=== PATIENT | female | born 2000 | race Caucasian/White ===

== ENCOUNTER 2020-06-24 14:37 | Outpatient (RCR) | payer OTHER, SELFPAY ==
[2020-06-22 11:43] LABS: Beta HCG Quantitative 416.93 mIU/ML
[2020-06-25 07:20] LABS: Progesterone 19.3 ng/mL (***)
== END 2020-09-20 23:59 | disposition home or self-care (01) ==
LOC: ANHLAB 14:37
PROVIDERS: Visit Provider Obstetrics & Gynecology
DX: N91.2 Amenorrhea, unspecified (principal)
CPT/HCPCS: 36415; 84144; 84702

== ENCOUNTER 2020-11-07 19:44 | Observation (INO) | payer OTHER, SELFPAY ==
--- NOTE | ~2020-11-07 | US_ITS ---
EXAMINATION: US umbilical doppler, US OB limited EXAM DATE: 11/08/2020 07:26 INDICATION: decels/. 2nd trimester. TECHNIQUE: Pelvic obstetrical transabdominal sonogram was performed by a technologist. There are mu ltiple grayscale and Doppler images available for interpretation. FINDINGS: There is a single fetus identified in breech longitudinal presentation with a heart rate of 144 beats per minute. The placenta is located in the posterior position. There is no sonographic ev idence of retroplacental hemorrhage identified. The amniotic fluid index is 13.9 centimeters, which i s normal. Placental margin to internal cervical os distance is 3.8 cm cm. There is no cervical funne ling. Cervical canal length 5.7 cm. Another image annotated cervical length with pressure has a measu rement of 5.5 cm. UMBILICAL ARTERY DOPPLER Systolic/diastolic ratios obtained as follows: Near baby: 2.5 Mid aspect: 3.3 Near Placenta: 2.4 (The 5th -- 95th percentile range is 2.6-5.6). IMPRESSION: 1. Single fetus in breech longitudinal presentation with heart rate 144 beats per minute. 2. Normal JENA 14 cm. 3. Cervical canal length 5.5-5.7 cm. 4. No elevated Umbilical artery doppler ratios. Reviewed, dictated and finalized at location B. IMPRESSION: 1. Single fetus in breech longitudinal presentation with heart rate 144 beats per minute. 2. Normal JENA 14 cm. 3. Cervical canal length 5.5-5.7 cm. 4. No elevated Umbilical artery doppler ratios.
[2020-11-07 19:58] VITALS: BP 114/68; PULSE 75
[2020-11-07 20:00] VITALS: BP 115/64; PULSE 80
[2020-11-07 20:05] VITALS: BMI 25.2
--- NOTE | 2020-11-07 20:05 | OBADM ---
This patient, Jeanne Padron, admitted to the OB room OB Post 113 for observation. Patient/family oriented to hospital policies and general routines including ID bracelet, bed and alarms, visiting hours, pain management, procedures, bathroom and other care routines, personal items, smoking policy, room service/diet, and visiting hours. Patient/Family are encouraged to report perceived risks to care and to ask questions if they do not understand what they are told or what they should do.
[2020-11-07 21:00] VITALS: BP 121/73; PULSE 85
[2020-11-07] MEDS: TERBUTALINE SULFATE 1 MG/ML VIAL 0.25 MG SUB-Q (21:01)
--- NOTE | 2020-11-07 21:16 | PM.IMHP ---
H&P: HPI History of Present Illness Date/Time: 11/07/20 21:16 Chief Complaint: G 4 P1 pt admitted for observation came in with contractions at 24 weeks gestation. RN called and noted deep variables on NST, At bs for evaluation, pt c/o irregular but uncomfortable contractions, no discharge or leaking of fluid, no intercourse with in the last 24 hours Meds Vital Signs Vital Signs - 24 hr 11/07/20 19:58 11/07/20 20:00 11/07/20 21:00 Pulse Rate 75 80 85 Blood Pressure 114/68 115/64 121/73 Exam Narrative: Exam Narrative: Speculum exam, cervix appears closed, FFN collected, SVE 1 thick firm Const: General: cooperative
[2020-11-07 21:32] VITALS: TEMP 37.3
[2020-11-07 21:44] LABS: Fetal Fibronectin Negative
[2020-11-07] MEDS: LACTATED RINGERS 1,000 ML 999 ML IV CONT (21:52)
--- NOTE | 2020-11-07 22:00 | PC.NURSE ---
SEE OBIX DOCUMENTATION.
[2020-11-07 22:10] LABS: Add Urine Microscopic? YES; Appearance Urine Cloudy (Clear); Bacteria Urine Trace /hpf; Bilirubin Urine Negative (Negative); Color Urine Yellow (Yellow); Glucose Urine UA Negative (Negative); Ketones Urine Negative (Negative); Leukocyte Esterase Ur Negative LEU/UL (Negative); Mucus Urine Rare /lpf; Nitrate Urine Negative (Negative); Protein Urine Negative (Negative); RBC Urine 0-2 /hpf (0-2); Squamous Epithelial Cell Urine Occasional /hpf (Few); Urobilinogen Urine Negative mg/dL (<2.0)
[2020-11-07 22:15] LABS: Blood Urine Negative (Negative)
[2020-11-07 23:58] VITALS: BP 111/57; PULSE 72
[2020-11-08] VITALS (12 sets, daily range): BP systolic 92–119; BP diastolic 44–73; PULSE 72–89; TEMP 36.6–37
[2020-11-08] MEDS: TERBUTALINE SULFATE 1 MG/ML VIAL 0.25 MG SUB-Q ×2 (00:32→04:21)
[2020-11-08] MEDS: LACTATED RINGERS 1,000 ML 125 ML IV CONT ×2 (01:37→11:18)
--- NOTE | 2020-11-08 04:30 | PC.NURSE ---
Update to Kindra Bhandari CNM. Reported pt contractions and variable decels. Terb given x3. Order for ProcardiaXL 30 mg.
--- NOTE | 2020-11-08 06:43 | PC.NURSE ---
SEE OBIX DOCUMENTATION.
--- NOTE | 2020-11-08 07:55 | PC.NURSE ---
Dr. Be on unit and reviewed entire FHR tracing from the night through now. MD not convinced they are variable decels. MD viewed U/S results per computer. Broached possibility of transferring pt to higher level of care with .
--- NOTE | 2020-11-08 08:03 | PC.NURSE ---
Dr. Be in to see pt and discuss U/S results. Discussing whether baby is actually having variable decels or if baby's almost non-stop activity is more accelerations with brief drops down to baseline. Pt denies drug use, stimulants, methamphetamine. Dr. Be plans to talk with M regarding FHR tracing. Discussed pt's history of lupus.
--- NOTE | 2020-11-08 08:30 | PM.IMHP ---
H&P: HPI History of Present Illness Date/Time: 11/08/20 08:30 this patient is a 20-year-old 3 para 1011 at 24 weeks gestation who presented for contractions. Her contractions decreased in frequency. She denies any vaginal bleeding. She denies any nausea, vomiting, fever, chills. She denies any chest pain or shortness of breath. She denies any headache, blurry vision, epigastric pain. Chief Complaint: contractions Review of Systems Constitutional: Constitutional: Reports no additional constitutional complaints, Denies fatigue, Denies headache(s), Denies lethargy and Denies weakness Eyes: Eyes: Reports no additional eye complaints, Denies blurry vision and Denies photophobia ENT: Reports as per HPI, Denies headache(s) and Denies neck pain Cardiovascular: Cardiovascular: Denies chest pain, Denies diaphoresis, Denies leg edema, Denies palpitations and Denies dyspnea Respiratory: Respiratory: Denies hemoptysis, Denies dyspnea and Denies wheezing Gastrointestinal: Gastrointestinal: Denies abdominal pain, Denies melena, Denies bloating, Denies hematochezia, Denies nausea and Denies vomiting Genitourinary: Genitourinary: Reports no additional female genitourinary complaints Musculoskeletal: Musculoskeletal: Denies joint swelling, Denies neck pain, Denies numbness and Denies stiffness Neurologic: Denies Abnormal speech present, Denies confusion, Denies headache(s), Denies numbness and Denies weakness Psychiatric: Psychiatric: Denies anxiety, Denies confusion, Denies depression, Denies homicidal ideation and Denies suicidal ideation Endocrine: Endocrine: Denies fatigue and Denies palpitations Allergic/Immunologic: Allergic/Immunologic: Denies wheezing Meds Home Medications and Allergies Allergies Allergy/AdvReac Type Severity Reaction Status Date / Time No Known Allergies Allergy Verified 11/07/20 21:52 Vital Signs Vital Signs - 24 hr 11/07/20 19:58 11/07/20 20:00 11/07/20 21:00 Temperature Pulse Rate 75 80 85 Blood Pressure 114/68 115/64 121/73 11/07/20 21:32 11/07/20 23:58 11/08/20 04:01 Temperature 99.2 F Pulse Rate 72 72 Blood Pressure 111/57 L 111/61 11/08/20 05:06 11/08/20 06:43 11/08/20 06:44 Temperature 98 F Pulse Rate 81 83 Blood Pressure 92/48 L 108/63 11/08/20 07:00 11/08/20 08:00 Temperature Pulse Rate 77 76 Blood Pressure 104/59 L 119/73 Exam Const: General: healthy appearing, comfortable and no acute distress; No confusion Orientation/consciousness: No confusion Eyes: Direct Ophthalmoscopy: No photophobia Resp: Auscultation: clear to auscultation bilaterally, no rales, no rhonchi and no wheezes Cardio: Rate: regular rate Heart sounds: no click, no murmurs and no rubs GI: Inspection: non-distended GI Palp: No abdominal tenderness Auscultation: normal bowel sounds Neuro: General: No confusion Speech: No Abnormal speech present Extrem: General: normal to inspection, no pedal edema and no calf tenderness H&P: Results Labs Labs: Urine 11/07/20 Range/Units 21:51 Urine Color Yellow (Yellow) Urine Appearance Cloudy H (Clear) Urine pH 7.0 (5.0-9.0) Ur Specific [place] 1.020 (1.001-1.035) Urine Protein Negative (Negative) mg/dL Urine Glucose (UA) Negative (Negative) mg/dL Assessment and Plan Assessment and plan (1) heart rate decelerations affecting management of mother: Code(s): O36.8390 - Maternal care for abnormalities of the heart rate or rhythm, unspecified trimester, not applicable or unspecified Status: Acute (2) contractions: Code(s): O47.00 - False labor before 37 completed weeks of gestation, unspecified trimester Status: Acute Assessment and Plan: this patient is a 20-year-old multiparous female at 24 weeks gestation who presented for painful contractions. Her contractions resolved after period of observation. What was concern after vernon
[2020-11-08] MEDS: NIFEdipine 30 MG TAB.ER.24 PO (08:48)
[2020-11-08 09:11] LABS: Amphetamine Screen Urine Negative (Negative); Barbiturate Screen Urine Negative (Negative); Benzodiazepines Screen Urine Negative (Negative); Cannabinoid Screen Urine Negative (Negative); Cocaine Screen Urine Negative (Negative); Methadone Screen Urine Negative (Negative); Opiate Screen Urine Negative (Negative); Phencyclidine Screen Urine Negative (Negative)
== END 2020-11-08 13:58 | disposition home or self-care (01) ==
LOC: ANHOBPP 11-08 13:40 → ANHLDR 11-08 13:58
PROVIDERS: Advanced Practice Midwife; Admitting Provider Obstetrics & Gynecology; Visit Provider Obstetrics & Gynecology
DX: O36.8390 Maternal care for abnormalities of the fetal heart rate or rhythm, unspecified trimester, not applicable or unspecified (principal); O47.00 False labor before 37 completed weeks of gestation, unspecified trimester; Z3A.24 24 weeks gestation of pregnancy
CPT/HCPCS: 76815; 76820; 80307; 81001; 82731; 87086; 96360; 96361; 96372; A9270; G0378; G0379; J3105; J7120

== ENCOUNTER 2020-11-26 06:04 | Outpatient (CLI) | payer OTHER, SELFPAY ==
--- NOTE | 2020-11-26 06:04 | OBADM ---
This patient, Jeanne Padron, admitted to the OB room OB Post 116 for evaluation of possible SROM. Patient/family oriented to hospital policies and general routines including ID bracelet, bed and alarms, visiting hours, pain management, procedures, bathroom and other care routines, personal items, smoking policy, room service/diet, and visiting hours. Patient/Family are encouraged to report perceived risks to care and to ask questions if they do not understand what they are told or what they should do.
[2020-11-26 06:24] VITALS: BP 123/74; PULSE 88; RESP 20; TEMP 36.6
[2020-11-26 06:53] VITALS: BP 123/74; PULSE 99
== END 2020-11-26 06:59 | disposition home or self-care (01) ==
LOC: ANHOBOP 06:08 → ANHOBPP 06:09
PROVIDERS: Visit Provider Obstetrics & Gynecology
DX: O42.90 Premature rupture of membranes, unspecified as to length of time between rupture and onset of labor, unspecified weeks of gestation (principal); Z3A.00 Weeks of gestation of pregnancy not specified
CPT/HCPCS: 59025; 84112; 99199

== ENCOUNTER 2020-12-03 17:38 | Observation (INO) | payer OTHER, SELFPAY ==
--- NOTE | ~2020-12-03 | US_ITS ---
EXAMINATION: US OB limited w BPP DATE: 12/04/2020 07:45 INDICATION: decelerations during third trimester TECHNIQUE: Real-time pelvic ultrasound was performed. The interpreting radiologist was not present fo r the study. COMPARISON: 11/08/2020 FINDINGS: There is a single living fetus in vertex presentation. The placenta is posterior. heart rate is 145 beats per minute (bpm). The amniotic fluid index is 9.7 cm which is normal (normal range: 9.4 cm to 22.8 cm). Biophysical profile performed by the technologist: breathing (30 sec sustained breathing in 30 minutes): 0 out of 2 movement (3 gross body movements in 30 minutes): 2 out of 2 tone (one episode of gzxsjei-trqhbjzvm-afhndxt limb movement): 2 out of 2 Amniotic fluid pocket (2 cm): 2 out of 2 Total score: 6 out of 8 IMPRESSION: 1. Single living fetus in vertex presentation. 2. Biophysical profile 6 out of 8. 3. Normal amniotic fluid index. Reviewed, dictated and finalized at location D.
[2020-12-03 18:00] VITALS: BMI 25.6
--- NOTE | 2020-12-03 18:00 | OBADM ---
This patient, Jeanne Padron, admitted to the OB room OB Post 116 for observation. Patient/family oriented to hospital policies and general routines including ID bracelet, bed and alarms, visiting hours, pain management, procedures, bathroom and other care routines, personal items, smoking policy, room service/diet, and visiting hours. Patient/Family are encouraged to report perceived risks to care and to ask questions if they do not understand what they are told or what they should do.
[2020-12-04 07:56] VITALS: BP 113/67; PULSE 87; RESP 16; TEMP 36.7
[2020-12-04 09:27] LABS: Glucose 1 Hour PP 50gm Dose 126 mg/dL
--- NOTE | 2020-12-23 10:10 | PM.OBTRLD ---
OB - Triage/Final Diagnosis Visit Information Comments/Additional reasons for admission: I have assessed the risk for this patient, Jeanne Padron, and determined that she would benefit from observation care. Evaluation Laboratory results: Laboratory Tests 12/04/20 08:54 Glucose 1 Hr 50 gm 126 Final Diagnosis (1) Decreased movement: Code(s): O36.8190 - Decreased movements, unspecified trimester, not applicable or unspecified Status: Acute
== END 2020-12-04 09:30 | disposition home or self-care (01) ==
PROVIDERS: Advanced Practice Midwife; Admitting Provider Obstetrics & Gynecology; Visit Provider Obstetrics & Gynecology
DX: O36.8120 Decreased fetal movements, second trimester, not applicable or unspecified (principal); Z3A.27 27 weeks gestation of pregnancy
CPT/HCPCS: 36415; 76815; 76819; 82947; G0378; G0379

== ENCOUNTER 2020-12-03 17:38 | Outpatient (RCR) | payer OTHER, SELFPAY | END 2020-12-18 09:08 | disposition home or self-care (01) | LOC: ANHOBOP 17:38 | PROVIDERS: Visit Provider Obstetrics & Gynecology | DX: O26.893 Other specified pregnancy related conditions, third trimester (principal); Z3A.00 Weeks of gestation of pregnancy not specified | CPT/HCPCS: 99199 ==

== ENCOUNTER 2021-02-01 15:13 | Outpatient (RCR) | payer OTHER, SELFPAY ==
[2021-02-01 16:06] VITALS: BP 117/71; PULSE 90
== END 2021-03-11 10:35 | disposition home or self-care (01) ==
LOC: ANHOBOP 15:13
PROVIDERS: Visit Provider Obstetrics & Gynecology
DX: O99.119 Other diseases of the blood and blood-forming organs and certain disorders involving the immune mechanism complicating pregnancy, unspecified trimester (principal); M32.9 Systemic lupus erythematosus, unspecified; Z3A.36 36 weeks gestation of pregnancy
CPT/HCPCS: 59025

== ENCOUNTER 2021-02-20 05:06 | Inpatient (IN) | payer OTHER, SELFPAY ==
[2021-02-20] VITALS (90 sets, daily range): BP systolic 81–135; BP diastolic 40–90; PULSE 8–112; RESP 18; TEMP 36.5–37.3; O2SAT 98–100; BMI 27.3
--- NOTE | 2021-02-20 05:31 | LDADM ---
This patient, Jeanne Padron, was admitted to Labor/Delivery/Recovery 102 on 02/20/21 at 05:06. Plans for labor, pain management and were discussed with patient. Patient/family oriented to hospital policies and general routines including ID bracelet, bed and alarms, visiting hours, pain management, procedures, bathroom and other care routines, personal items, smoking policy, room service/diet and guest tray routines, security routines, and visiting hours. Patient/Family are encouraged to report perceived risks to care and to ask questions if they do not understand what they are told or what they should do. See OBIX for further documentation.
[2021-02-20] MEDS: LACTATED RINGERS 1,000 ML 125 ML IV CONT ×2 (05:37→09:40)
[2021-02-20] MEDS: OXYTOCIN 30 UNITS/NS 500 ML 30 UNITS/500 ML BAG IV CONT (05:37)
[2021-02-20 05:42] LABS: Basophils Percent Auto 0.5 % (0.2-1.2); Eosinophils Absolute Auto 0.1 K/mm3 (0-0.3); Eosinophils Percent Auto 1.1 % (0-4.4); Hematocrit 32.7 % (37.0-47.0); Hemoglobin 11.6 g/dL (12.0-15.0); Immature Granulocyte Absolute 0.05 K/mm3 (0.00-0.031); Immature Granulocyte Percent A 0.7 % (0-0.5); Lymphocytes Absolute Auto 2.26 K/mm3 (0.9-3.2); Lymphocytes Percent Auto 30.5 % (18.3-44.2); Mean Corpuscular HGB Conc 35.5 g/dl (32-36); Mean Corpuscular Hemoglobin 31.2 pg (26-34); Mean Corpuscular Volume 87.9 fl (80-100); Mean Platelet Volume 9.8 fl (7.4-10.4); Monocytes Absolute Auto 0.6 K/mm3 (0.1-0.6); Monocytes Percent Auto 7.7 % (2.6-8.5); Neutrophils Absolute Auto 4.4 K/mm3 (1.3-6.7); Neutrophils Percent Auto 59.5 % (45.5-73.1); Platelet Count Result 165 k/mm3 (150-375); Red Blood Count 3.72 M/mm3 (4.2-5.4); Red Cell Distribution Width 13.3 % (11.5-14.5); White Blood Count 7.4 K/mm3 (4.5-10.0)
--- NOTE | 2021-02-20 06:17 | P.PNAN_ITS ---
Anes - Eval Pre Procedure Procedure: labor epidural Date/Time: 02/20/21 06:17 Surgeon: claudia Preop Diagnosis: pain during labor Pre Op Diagnosis: Induction of Labor Patient Data Age: 20 Gender: F Height: 1.52 m Weight: 63.6 kg Last Vital Signs Pulse 64 02/20/21 06:15 BP 121/69 02/20/21 06:15 Allergies Allergy/AdvReac Type Severity Reaction Status Date / Time No Known Allergies Allergy Verified 11/07/20 21:52 Home Medications Medication Instructions Recorded Confirmed Type PNV cmb#95-ferrous fumarate-FA 1 tablet PO DAILY 11/08/20 02/17/21 History [] sertraline 100 mg PO HS 11/08/20 02/17/21 History Laboratory Tests 02/20/21 02/20/21 05:32 05:32 WBC 7.4 K/mm3 K/mm3 (4.5-10.0) RBC 3.72 M/mm3 L M/mm3 (4.2-5.4) Hgb 11.6 g/dL L g/dL (12.0-15.0) Hct 32.7 % L % (37.0-47.0) MCV 87.9 fl fl (80-100) MCH 31.2 pg pg (26-34) MCHC 35.5 g/dl g/dl (32-36) RDW 13.3 % % (11.5-14.5) Plt Count 165 k/mm3 k/mm3 (150-375) MPV 9.8 fl fl (7.4-10.4) Immature Gran % (Auto) 0.7 % H % (0-0.5) Neut % (Auto) 59.5 % % (45.5-73.1) Lymph % (Auto) 30.5 % % (18.3-44.2) [place] % (Auto) 7.7 % % (2.6-8.5) Eos % (Auto) 1.1 % % (0-4.4) Baso % (Auto) 0.5 % % (0.2-1.2) Lymph # (Auto) 2.26 K/mm3 K/mm3 (0.9-3.2) [place] # (Auto) 0.6 K/mm3 K/mm3 (0.1-0.6) Eos # (Auto) 0.1 K/mm3 K/mm3 (0-0.3) Baso # (Auto) 0.0 K/mm3 K/mm3 (0.0-0.1) Abs Immat Gran (auto) 0.05 K/mm3 H K/mm3 (0.00-0.031) Absolute Neuts (auto) 4.4 K/mm3 K/mm3 (1.3-6.7) Absolute Nucleated RBC 0.0 K/mm3 K/mm3 (0.0-0.012) Nucleated RBC % 0.0 % % (0.0-0.2) RPR Pending Patient hx anesthesia problems: none Family hx anesthesia problems: none Results Review: All pre-operative results and documents have been reviewed as part of the pre-operative evaluation. FOR[facility]LY [facility] Past Medical History Medical History (Updated 02/20/21 @ 06:18 by Neyda Hernadez CRNA) Intrauterine Family History Family History (Updated 02/17/21 @ 16:34 by Melyssa Ellis RN) Other No pertinent family history in first degree relatives Social History Social History Smoking packs per day: 0.25 Smoking cigarettes per day: 5.0 Years smoked: 4 Smoking pack-years: 1.00 Smoking status: Former smoker Tobacco type: cigarettes Second hand tobacco smoke exposure: No Substance use: never Spiritual care concerns: No Exam Day of Procedure 02/20/21 06:17
--- NOTE | 2021-02-20 07:38 | WPDOBADMIT ---
Obstetrics - Admit Note Admission Note: record reviewed. No pertinent additions to the history and/or any subsequent changes in the physical findings that are not consistent with the expected course of the were found. MIL, Lupus, SVE /-1 AROM large amount of clear odorless fluid Additions to the history and/or subsequent changes in the physical findings follow. None.
[2021-02-20] MEDS: fentaNYL CITRATE INJ (*CRX) 100 MCG/2 ML VIAL 50 MCG IV PUSH (08:25)
[2021-02-20 08:30] LABS: Rapid Plasma Reagin Non-Reactive (NonReactive)
--- NOTE | 2021-02-20 11:47 | PM.OBPRVD ---
OB - Delivery Note Procedure Delivery date: 02/20/21 Procedure: vaginal delivery events: No Care Intrapartal events: None Induction method: AROM and per pitocin protocol Route of delivery: Laceration Description: None Specimen: No Quantitative Blood Loss (ml): 200 Anesthesia type: Epidural Disposition: floor Baby Date of : 02/20/21 Time of : 11:33 Weeks of gestation at delivery: 39 Infant gender: Male Weight (pounds): 7 Weight (ounces): 5 presentation: vertex position: Left Occiput Anterior Placenta delivery description: Spontaneous cord vessel description: 3 Vessels, Clamped/Cut and Delayed Cord Clamping score one minute: 8 score five minutes: 9 Narrative: mother and baby skin to skin in stable condition
[2021-02-20] MEDS: OXYTOCIN 30 UNITS/NS 500 ML 30 UNITS/500 ML BAG 125 UNITS IV CONT (12:24)
[2021-02-20] MEDS: IBUPROFEN 600 MG TABLET PO (14:06)
[2021-02-20] MEDS: WITCH HAZEL 40 PADS 1 PAD TOPICAL (14:07)
--- NOTE | 2021-02-20 14:55 | PC.NURSE ---
Mother called out for assist with feeding. Mother reports infant was unable to latch for first feeding, Mother self expressed colostrum into infants mouth for feeding. Mother reports difficulties with first child and wishes to exclusively breastfeed this . Infant is able to freely thrust tongue past gum ridge and flange both lips, keeps tongue up and is sucking on his tongue. Skin is intact on both nipples, no redness and bruising noted. Nipples are flat Reviewed infant feeding cues, frequencies, duration of feedings, feeding elimination flow sheet, and signs of adequate intake. Demonstrated stimulation techniques to wake for feeding. Assisted with infant to breast. Reviewed positioning/alignment in cross cradle, holding breast in ?U? hold and guided asymmetrical latch on. Reviewed rational for each. Infant was unable to latch correctly due to tongue sucking. Attempt for 10 minutes with no effective latch. Discussed nipple shield use and how shield may assist with latch. Mother is willing to attempt using shield. Initiated nipple shield due to flat nipples, unable to latch and tongue sucking. Reviewed nipple shield precautions and possible complications. Instructions given on application and cleaning of shield. Patient able to return demonstration on proper application of shield. Discussed the need to initiate pumping if continues to nurse with the shield. Patient verbalizes understanding. With shield in place, infant able to latch correctly within a few attempts. Infant nursed eagerly with steady draws and occasional swallowing noted. Reviewed signs of a correct latch, effective nursing and suck swallow ratio. was able to maintain latch without discomfort to mother. Suggested mother stimulate while feeding to increase stimulate, increase intake and to assist with maintaining deep latch. Demonstrated how to adjust latch more deeply while feeding if needed. Instructed mother to call out for RN assistance if she is unable to latch for feeding or she has discomfort with nursing. Instructed feeding should be initiated three hours from start of last feeding or if feeding cues are noted before. Mother voiced understanding of information shared.
[2021-02-20] MEDS: SERTRALINE HCL 50 MG TABLET 100 MG PO (21:04)
[2021-02-21 00:06] VITALS: BP 106/61; PULSE 72; RESP 18; TEMP 36.3; O2SAT 99
[2021-02-21 04:29] VITALS: BP 104/61; PULSE 78; RESP 18; TEMP 36.8; O2SAT 100
[2021-02-21 05:24] LABS: Hematocrit 27.4 % (37.0-47.0); Hemoglobin 9.4 g/dL (12.0-15.0)
[2021-02-21 07:20] VITALS: BP 111/73; PULSE 75; RESP 18; TEMP 37; O2SAT 98
[2021-02-21] MEDS: IBUPROFEN 600 MG TABLET PO ×3 (07:20→21:10)
[2021-02-21] MEDS: POLYSACCHARIDE IRON COMPLEX 150 MG CAPSULE PO ×2 (07:21→17:31)
[2021-02-21] MEDS: DOCUSATE SODIUM 100 MG CAPSULE PO ×2 (07:21→17:31)
[2021-02-21] MEDS: MULTIVIT/MIN/PREN/FOL AC/IRON TABLET 1 TAB PO (07:21)
--- NOTE | 2021-02-21 07:52 | PM.OBPNVD ---
OB - PN: Subj Subjective Date/time seen: 02/21/21 07:52 Patient comments: no complaints baby status: doing well OB - PN: Obj Data Labs CBC & Chem 7: 02/21/21 04:17 Labs: Laboratory Results - last 24 hr 02/20/21 02/21/21 05:32 04:17 Hgb 9.4 L Hct 27.4 L RPR Non-reactive OB - PN A/P Plan day: 1 Plan: routine care Time Spent With Patient Time: Total time spent is greater than 50% in coordination of care (as documented) at patient's floor/unit and/or counseling patient: Time with patient: less than 15 minutes Review of Systems Review of Systems: All systems reviewed & are unremarkable except as noted in HPI and below Exam Narrative: Fundus firm and vaginal flow controlled. No lower ext redness, warmth, or edema. Negative homans. Const: General: comfortable Chest: Breast/axilla inspection: normal inspection of the breasts Resp: Effort & Inspection: normal respiratory effort Cardio: Rate: regular rate GI: GI Palp: Yes Soft to palpation Psych: Appearance: grossly normal Affect: normal affect Attitude: cooperative Thought content: Yes Normal thought content present Judgement: Good judgement present (Psych)
--- NOTE | 2021-02-21 11:00 | PC.NURSE ---
Mother called out for assist with feeding. Demonstrated stimulation techniques to wake for feeding. Assisted with to breast. Reviewed positioning/alignment in cross cradle, holding breast in ?U? hold and guided asymmetrical latch on. Reviewed rational for each. remains sleepy and advised to skin to skin and call out within 30 minutes if unable to latch.
--- NOTE | 2021-02-21 12:05 | PC.NURSE ---
Mother called out for assist with feeding, reporting remains sleepy after circumcision. Demonstrated stimulation techniques to wake for feeding. Several minutes to wake infant with feeding cues noted. Assisted with to breast. Reviewed positioning/alignment in cross cradle, holding breast in ?U? hold and guided asymmetrical latch on. Reviewed rational for each. able to latch correctly within a few attempts. Infant nursed eagerly with steady draws and occasional/frequent swallowing noted, some pausing noted. Reviewed signs of a correct latch, effective nursing and suck swallow ratio. Suggested mother stimulate while feeding to increase stimulate, increase intake and to assist with maintaining deep latch. Infant was able to maintain latch without discomfort to mother. would slip to shallow latch causing tenderness. Demonstrated how to adjust latch more deeply while feeding if needed. Mother reports she can feel the difference in latch with no/less tenderness. Nipple care reviewed of lanolin after feedings, warm compresses as needed. Instructed mother to call out for RN assistance if she is unable to latch for feeding or she has discomfort with nursing. Instructed feeding should be initiated three hours from start of last feeding or if feeding cues are noted before. Mother voiced understanding of information shared.
--- NOTE | 2021-02-21 14:58 | WPDANLDPN2 ---
Anes-Prog Note L&D Date/Time: 02/21/21 14:58 Comfortable throughout: labor and delivery Neuraxial method: epidural Epidural/Spinal procedure site: clean & non-tender Neuro status: Neuro function grossly intact. Cardiovascular status: normal Respiratory status: normal Airway patency: baseline Mental status: baseline Post-Op hydration status: normal Vital Signs: Last Vital Signs Temp 37.0 C 02/21/21 07:20 Pulse 75 02/21/21 07:20 Resp 18 02/21/21 07:20 BP 111/73 02/21/21 07:20 Pulse Ox 98 02/21/21 07:20 Pain score (VAS): 05/06 I/O: Intake & Output 02/20/21 02/21/21 02/21/21 23:59 07:59 15:59 Intake Total 240 Balance 240 Post-procedural complaints: none Patient feedback: Patient satisfied with anesthetic care.
[2021-02-21 20:00] VITALS: BP 110/60; PULSE 68; RESP 18; TEMP 36.8
[2021-02-21] MEDS: LANOLIN (LANSINOH) 7.5 GM CREAM 1 APPLIC TOPICAL (21:11)
[2021-02-21] MEDS: SERTRALINE HCL 50 MG TABLET 100 MG PO (21:11)
--- NOTE | 2021-02-22 07:39 | PM.OBPNVD ---
OB - PN: Subj Subjective Date/time seen: 02/22/21 07:39 Patient comments: no complaints baby status: doing well OB - PN: Obj Data Labs CBC & Chem 7: 02/21/21 04:17 OB - PN A/P Plan day: 2 Plan: routine care and discharge home Time Spent With Patient Time: Total time spent is greater than 50% in coordination of care (as documented) at patient's floor/unit and/or counseling patient: Review of Systems Review of Systems: All systems reviewed & are unremarkable except as noted in HPI and below Exam Const: General: cooperative Nutritional Appearance: average body habitus
--- NOTE | 2021-02-22 07:41 | PM.OBDSVD ---
DS: Admitting Diagnosis Discharge Date 02/22/21 Admitting Diagnosis IOL OB - DS: Summary OB Procedures : None OB Procedures Intrapartum: Spontaneous Vag Delivery OB Procedures: : None Time Spent with Patient Time attestation: Total time spent providing and/or coordinating discharge services: Discharge Plan Discharge Attending physician on discharge: Govind Be Discharging Clinician: Alie Peterson Patient Disposition: Home, Self-Care Activity: pelvic rest Diet: regular Patient Instructions: Antibiotic Form Stand Alone Forms: General Discharge Information Follow-up/Referrals: Alie Peterson CNM [Certified Nurse Assistant Reading Teacher] - 4 Weeks Discharge Medications: Continued sertraline 100 mg tablet 100 mg PO HS RF: 0 PNV cmb#95-ferrous fumarate-FA [] 28 mg iron- 800 mcg Tablet 1 tablet PO DAILY RF: 0 Date of admission: 02/20/21 05:06 Primary Care Provider: PHYSICIAN,HYDROELECTRIC STATION OPERATOR Admitting Provider: Govind Be Attending physician on admission: Govind Be Condition: Stable
[2021-02-22 08:00] VITALS: BP 120/78; PULSE 80; RESP 16; TEMP 37.2; O2SAT 99
[2021-02-22 09:16] VITALS: PULSE 80; RESP 16; O2SAT 99
--- NOTE | 2021-02-22 09:21 | PC.NURSE ---
Patient was given the opportunity to view the discharge video Mother & Baby Care, The First Two Weeks and to ask questions. Patient declined viewing the video and has been given the mother/baby guide for home reference.
[2021-02-22] MEDS: MULTIVIT/MIN/PREN/FOL AC/IRON TABLET 1 TAB PO (09:41)
[2021-02-22] MEDS: DOCUSATE SODIUM 100 MG CAPSULE PO (09:41)
[2021-02-22] MEDS: POLYSACCHARIDE IRON COMPLEX 150 MG CAPSULE PO (09:41)
[2021-02-22] MEDS: IBUPROFEN 600 MG TABLET PO (09:41)
--- NOTE | 2021-02-22 09:45 | PC.NURSE ---
Observed mother is able to independently latch with appropriate positioning/alignment. eagerly latches on first attempt with long rhythmical draws and frequent swallowing noted. She denies any nipple discomfort, is feeding as required and waking infant to feed if needed. has had at least 8 effective feedings in the past 24 hours, and is currently meeting outcomes for weight, output, jaundice and feeding frequencies. Mother reported was sleepy last night and had some difficulties with latching, Reviewed softening before feeding with pumping or self expressing and to assist with drawing out nipple. Mother states she feels confident to continue effective at home. Reviewed transition to breast milk, signs of adequate intake, and engorgement/relief. Instructed to call ICP if intake/output less than required. Reviewed regular medications mother is taking. Information provided per Bree. Reviewed community resources on the [facility] website and in the Mom/Baby guide. Information on outpatient services provided. Mother has no further questions at this time. Instructed feeding should be initiated three hours from start of last feeding or if feeding cues are noted before until seen by ICP. Mother voiced understanding of information shared.
[2021-02-23 09:07] VITALS: BP 119/63; PULSE 87; RESP 20; TEMP 37.1; O2SAT 100
== END 2021-02-22 11:45 | disposition home or self-care (01) | DRG 560 ==
LOC: ANHLDR 05:11 → ANHOB2 15:21
PROVIDERS: Advanced Practice Midwife; Admitting Provider Obstetrics & Gynecology; Visit Provider Obstetrics & Gynecology
DX: O99.12 Other diseases of the blood and blood-forming organs and certain disorders involving the immune mechanism complicating childbirth (principal); D68.62 Lupus anticoagulant syndrome; Z3A.39 39 weeks gestation of pregnancy; Z37.0 Single live birth; Z87.891 Personal history of nicotine dependence
CPT/HCPCS: 36415; 85014; 85018; 85025; 86592; 86850; 86900; 86901; A9270; J2590; J2795; J3010; J7120

== ENCOUNTER 2022-03-08 08:27 | Emergency (ER) | payer OTHER, SELFPAY ==
[2022-03-08 08:35] VITALS: BP 133/86; PULSE 114; RESP 12; TEMP 37.1; O2SAT 100
--- NOTE | 2022-03-08 08:56 | ECG_ITS ---
Measurements Intervals [place] Rate: 88 P: 47 DC: 137 QRS: 52 QRSD: 85 T: 44 QT: 354 QTc: 430 Interpretive Statements SINUS RHYTHM WITH SINUS ARRHYTHMIA NONSPECIFIC T-WAVE ABNORMALITY- ANT/INF LEADS BORDERLINE ECG NO PREVIOUS ECG AVAILABLE FOR COMPARISON Electronically Signed On 03-08-2022 14:53:10 TWX OPERATOR by Job Noe D.O.
[2022-03-08] MEDS: SODIUM CHLORIDE 0.9% IV 1,000 ML 999 ML IV CONT (09:26)
[2022-03-08 09:35] LABS: Basophils Absolute Auto 0.1 K/mm3 (0.0-0.1); Basophils Percent Auto 0.4 % (0.2-1.2); Eosinophils Absolute Auto 0.1 K/mm3 (0-0.3); Eosinophils Percent Auto 0.7 % (0-4.4); Hematocrit 41.7 % (37.0-47.0); Hemoglobin 14.5 g/dL (12.0-15.0); Immature Granulocyte Absolute 0.06 K/mm3 (0.00-0.031); Immature Granulocyte Percent A 0.5 % (0-0.5); Lymphocytes Percent Auto 27.6 % (18.3-44.2); Mean Corpuscular HGB Conc 34.8 g/dl (32-36); Mean Corpuscular Hemoglobin 29.2 pg (26-34); Mean Corpuscular Volume 83.9 fl (80-100); Mean Platelet Volume 8.9 fl (7.4-10.4); Monocytes Absolute Auto 0.9 K/mm3 (0.1-0.6); Monocytes Percent Auto 8.3 % (2.6-8.5); Neutrophils Percent Auto 62.5 % (45.5-73.1); Platelet Count Result 423 k/mm3 (150-375); Red Blood Count 4.97 M/mm3 (4.2-5.4); Red Cell Distribution Width 13.2 % (11.5-14.5); White Blood Count 11.2 K/mm3 (4.5-10.0)
[2022-03-08 09:49] LABS: Alanine Aminotransferase 22 U/L (6-35); Albumin Level 5.2 g/dL (3.5-5.1); Alkaline Phosphatase 90 U/L (38-126); Anion Gap 22 mmol/L (8-16); Aspartate Amino Transferase 36 U/L (14-36); Bilirubin,Total 0.5 mg/dL (0.2-1.3); Blood Urea Nitrogen 8 mg/dL (7-17); Calcium 9.3 mg/dL (8.4-10.2); Carbon Dioxide 20 mmol/L (22-30); Chloride 103 mmol/L (98-107); Estimated Glomerular Filt Rate > 60; Ethanol 79 mg/dL (<10); Glucose 57 mg/dL (65-110); Potassium 3.6 mmol/L (3.4-5.0); Sodium 145 mmol/L (137-145)
--- NOTE | 2022-03-08 09:49 | PC.NURSE ---
Patient given ham and cheese sandwhich, sierrra mist, orange juice, and chips.
--- NOTE | 2022-03-08 10:56 | ED.GENADULT ---
HPI - General Adult General Chief complaint: Overdose Stated complaint: Multisubstance Overdose Time Seen by Provider: 03/08/22 08:40 History of Present Illness HPI narrative: Patient is a 21-year-old female who presents ER with concerns of illness related to drug abuse. She reports for the last 3 weeks she has been abusing Adderall pills that she takes by mouth and she is also been snorting cocaine. She has not been sleeping much. She is also been drinking some alcohol. She just feels weak and fatigued as well as slightly tired. No chest pain or chest pressure. No loss consciousness. No suicidal intent. She reports she was just wanting to get high. Related Data Home Medications Medication Instructions Recorded Confirmed vit no.95-ferrous 1 tablet PO DAILY 11/08/20 02/17/21 fumarate 28 mg-folic acid 800 mcg tablet () sertraline 100 mg tablet 100 mg PO HS 11/08/20 02/17/21 Allergies Allergy/AdvReac Type Severity Reaction Status Date / Time No Known Allergies Allergy Verified 10/04/21 12:41 Review of Systems Review of Systems: All systems reviewed & are unremarkable except as noted in HPI and below Constitutional: Constitutional: Denies chills, Reports fatigue and Denies fever(s) ENT: Denies nasal congestion and Denies sore throat Cardiovascular: Cardiovascular: Denies chest pain, Denies rapid heart rate and Denies radiating jaw, neck or arm pain Respiratory: Respiratory: Denies cough and Denies dyspnea Gastrointestinal: Gastrointestinal: Denies abdominal pain, Denies nausea and Denies vomiting Neurologic: Denies syncope, Denies headache(s), Denies numbness and Denies weakness Psychiatric: Psychiatric: Denies homicidal ideation and Denies suicidal ideation [facility] Past Medical History Medical History (Updated 03/08/22 @ 11:26 by Braulio Ireland MD) Intrauterine Surgical History Surgical History (Updated 03/08/22 @ 10:58 by Braulio Ireland MD) No pertinent past surgical history Family History Family History (System 10/04/21 @ 12:41 by Higinio Colunga) Other No pertinent family history in first degree relatives Social History Social History (Updated 03/08/22 @ 10:59 by Braulio Ireland MD) Smoking packs per day: 0.25 Smoking cigarettes per day: 5.0 Years smoked: 4 Smoking pack-years: 1.00 Smoking status: Former smoker Tobacco type: cigarettes Second hand tobacco smoke exposure: No Substance use type: crack/cocaine and amphetamines Spiritual care concerns: No Exam Narrative: GENERAL: Well-appearing, well-nourished, and in no acute distress. HEAD: Normocephalic, atraumatic. EYES: PERRL and EOMI. ENT: Mucous membranes moist. CHEST: Clear to auscultation. No respiratory distress. HEART: Tachycardic and regular. Normal peripheral pulses. ABDOMEN: Soft, nontender, nondistended. EXTREMITIES: Normal range of motion. No edema. SKIN: Warm, dry, no rash. NEURO: Alert and oriented x3. PSYCH: Normal mood and affect. Course Course Emergency Course: Patient resting comfortably informed of results. She had a low blood sugar but was able to eat while in the ER. Recommend abuse of drugs. Discharge. Vital Signs Vital signs: Vital Signs Temperature 98.7 F 03/08/22 08:35 Pulse Rate 114 H 03/08/22 08:35 Respiratory Rate 12 03/08/22 08:35 Blood Pressure 133/86 03/08/22 08:35 Pulse Oximetry 100 03/08/22 08:35 Temperature 98.7 F 03/08/22 08:35 Pulse Rate 114 H 03/08/22 08:35 Respiratory Rate 12 03/08/22 08:35 Blood Pressure 133/86 03/08/22 08:35 Pulse Oximetry 100 03/08/22 08:35 Medical Decision Making Vital Signs Vital Signs: Vital Signs Temperature 98.7 F 03/08/22 08:35 Pulse Rate 114 H 03/08/22 08:35 Respiratory Rate 12 03/08/22 08:35 Blood Pressure 133/86 03/08/22 08:35 Pulse Oximetry 100 03/08/22 08:35 Temperature 98.7 F 03/08/22 08:35 Pulse Rate 114 H 1
[2022-03-08 11:26] LABS: Glucose Point of Care 79 mg/dl (65-105)
--- NOTE | 2022-03-08 11:57 | PC.NURSE ---
Patient ate a few bites of her sandwich and chips. Patient drank orange juice and mary mist.
== END 2022-03-08 11:58 | disposition home or self-care (01) ==
PROVIDERS: Emergency Provider Emergency Medicine
DX: F19.10 Other psychoactive substance abuse, uncomplicated (principal); F14.10 Cocaine abuse, uncomplicated; E16.2 Hypoglycemia, unspecified
CPT/HCPCS: 36415; 80053; 80307; 82948; 85025; 93005; 96360; 99283; J7030

== ENCOUNTER 2024-03-29 14:36 | Emergency (ER) | payer SELFPAY ==
--- NOTE | ~2024-03-29 | XR_ITS ---
EXAMINATION: XR chest 2V DATE: 03/29/2024 15:55 INDICATION: Chest pain. TECHNIQUE: Frontal and lateral views of the chest were obtained. COMPARISON: None. FINDINGS: There is no pneumonia, pleural effusion, or pneumothorax. The heart size is normal. IMPRESSION: 1. No acute cardiopulmonary disease. Reviewed, dictated and finalized at location [facility]. [facility]
[2024-03-29 14:43] VITALS: BP 124/76; PULSE 114; RESP 16; TEMP 37; O2SAT 99
--- NOTE | 2024-03-29 14:47 | ECG_ITS ---
Test Date: 2024-03-29 14:53:21 Measurements Intervals [place] Rate: 112 P: 14 UT: 125 QRS: 50 QRSD: 77 T: 38 QT: 297 QTc: 406 Interpretive Statements SINUS TACHYCARDIA No previous ECG available for comparison Electronically Signed On 03-29-2024 15:37:42 [employer] by Devorah Olmstead M.D.
[2024-03-29 15:01] LABS: Basophils Percent Auto 0.3 % (0.2-1.2); Eosinophils Percent Auto 0.1 % (0-4.4); Hematocrit 38.5 % (37.0-47.0); Hemoglobin 12.8 g/dL (12.0-15.0); Immature Granulocyte Absolute 0.04 K/mm3 (0.00-0.031); Immature Granulocyte Percent A 0.6 % (0-0.5); Lymphocytes Absolute Auto 0.65 K/mm3 (0.9-3.2); Mean Corpuscular HGB Conc 33.2 g/dl (32-36); Mean Corpuscular Hemoglobin 29.6 pg (26-34); Mean Corpuscular Volume 88.9 fl (80-100); Mean Platelet Volume 8.9 fl (7.4-10.4); Monocytes Absolute Auto 0.5 K/mm3 (0.1-0.6); Monocytes Percent Auto 7.2 % (2.6-8.5); Neutrophils Percent Auto 82.8 % (45.5-73.1); Platelet Count Result 179 k/mm3 (150-375); Red Blood Count 4.33 M/mm3 (4.2-5.4); White Blood Count 7.2 K/mm3 (4.5-10.0)
[2024-03-29 15:13] LABS: Alanine Aminotransferase 67 U/L (6-35); Albumin Level 4.6 g/dL (3.5-5.1); Alkaline Phosphatase 57 U/L (38-126); Anion Gap 7 mmol/L (4-12); Aspartate Amino Transferase 90 U/L (14-36); Bilirubin,Total 0.5 mg/dL (0.2-1.3); Blood Urea Nitrogen 6 mg/dL (7-17); Carbon Dioxide 25 mmol/L (22-30); Chloride 104 mmol/L (98-107); Estimated CRCL calculation 77 ml/min; Estimated Glomerular Filt Rate > 60; Glucose 165 mg/dL (65-110); Lipase 64 U/L (23-300); Potassium 3.8 mmol/L (3.4-5.0); Sodium 136 mmol/L (137-145)
[2024-03-29 15:23] LABS: Prothrombin Time 13.1 Seconds (11.1-14.7)
--- NOTE | 2024-03-29 15:23 | ED_ITS ---
HPI - Weakness General Chief complaint: Upper Respiratory Infection <Keyona Chavira APRN - Last Filed: 03/29/24 15:27> Stated complaint: sharp chest pain 1 day <Keyona Chavira APRN - Last Filed: 03/29/24 15:27> Time Seen by Provider: 03/29/24 15:15 <Keyona Chavira APRN - Last Filed: 03/29/24 15:27> Focused HPI: Patient is a 23-year-old female who presents to the ER with with generalized body weakness, chest pain, back pain, aching throat, and tight sinuses. She reports back in January she was diagnosed with strep but only took 3 days worth of her antibiotic. Patient reports her sym ptoms restarted in February and she took her aunt's leftover antibiotics to treat her infection. Patient reports she got better but has been experiencing these new symptoms for the past couple of days. She denies any cough, fevers. Patient denies any pertinent medical history related to this ER visit. GENERAL: Well-appearing, well-nourished, and in mild acute distress d/t achiness. HEAD: Normocephalic, atraumatic. CHEST: Clear to auscultation. ?No respiratory distress. HEART: Tachycardia, regular rhythm. NEURO: ?Alert and oriented x3. Patient screened in triage and initial orders placed.? ?Additional care and disposition to be based upon?diagnostic testing and treatment. <Keyona Chavira APRN - Last Filed: 03/29/24 15:27> Related Data Home medications: Home Medications Medication Instructions Recorded Confirmed vit no.95-ferrous 1 tablet PO DAILY 11/08/20 02/17/21 fumarate 28 mg-folic acid 800 mcg tablet () sertraline 100 mg tablet 100 mg PO HS 11/08/20 02/17/21 <Keyona Chavira APRN - Last Filed: 03/29/24 15:27> Allergies/Adverse reactions: Allergies Allergy/AdvReac Type Severity Reaction Status Date / Time No Known Allergies Allergy Verified 03/29/24 14:39 <Keyona Chavira APRN - Last Filed: 03/29/24 15:27> Review of Systems Review of Systems: CONSTITUTIONAL: Denies fever ENT: Reports rhinorrhea, congestion and sore throat RESPIRATORY: Denies cough or dyspnea. <Hetal Haddad PA-C - Last Filed: 03/29/24 18:26> All systems reviewed & are unremarkable except as noted in HPI and below <Hetal Haddad PA-C - Last Filed: 03/29/24 18:26> PMFSH Past Medical History Medical History: Medical History (Updated 03/29/24 @ 18:07 by Hetal Haddad PA-C) Intrauterine <Keyona Chavira, FINANCE ADMINISTRATOR - Last Filed: 03/29/24 15:27> Surgical History Surgical History: Surgical History (Updated 03/08/22 @ 10:58 by Braulio Ireland MD) No pertinent past surgical history <Keyona Chavira FINANCE ADMINISTRATOR - Last Filed: 03/29/24 15:27> Family History Family History: Family History (System 10/04/21 @ 12:41 by Higinio Colunga) Other No pertinent family history in first degree relatives <Keyona Chavira, FINANCE ADMINISTRATOR - Last Filed: 03/29/24 15:27> Social History Social History: Social History (Updated 03/08/22 @ 10:59 by Braulio Ireland MD) Smoking packs per day: 0.25 Smoking cigarettes per day: 5.0 Years smoked: 4 Smoking pack-years: 1.00 Smoking status: Former smoker Tobacco type: cigarettes Second hand tobacco smoke exposure: No Substance use type: crack/cocaine and amphetamines Spiritual care concerns: No <Keyona Chavira APRN - Last Filed: 03/29/24 15:27> Exam Narrative: GENERAL: Well-appearing, well-nourished, and in no acute distress. HEAD: Normocephalic, atraumatic. EYES: EOMI. ENT: Nares clear, no rhinorrhea or epistaxis. Mucous membranes moist. Oropharynx with symmetric tonsillar hypertrophy and redness, no exudate or other lesions. Bilateral TMs pearly cabral non-bulging NECK: Supple. No adenopathy or masses. CHEST: Clear to auscultation. No respiratory distress. No wheezes rales or rhonchi HEART: Regular rate and rhythm. No murmur heard. Normal peripheral pulses. EXTREMITIES: Normal range of motion. No edema. SKIN: Warm, dry, no rash. NEURO: No focal deficits. Alert and oriented x3. PSYCH: Normal mood and affect <Hetal Haddad PA-C - Last Filed: 03/29/24 18:26> Course Course Emergency Course: Patient updated on her workup and agrees with plan of care <Hetal Haddad PA-C - Last Filed: 03/29/24 18:26> Vital Signs Vital signs: Vital Signs Temperature 98.6 F 03/29/24 14:43 Pulse Rate 114 H 03/29/24 14:43 Respiratory Rate 16 03/29/24 14:43 Blood Pressure 124/76 03/29/24 14:43 Pulse Oximetry 99 03/29/24 14:43 Oxygen Delivery Room Air 03/29/24 14:43 Temperature 99.8 F H 03/29/24 17:53 Pulse Rate 105 H 03/29/24 17:53 Respiratory Rate 18 03/29/24 17:53 Blood Pressure 115/75 03/29/24 17:53 Pulse Oximetry 99 03/29/24 17:53 Oxygen Delivery Room Air 03/29/24 16:40 <Keyona Chavira, FINANCE ADMINISTRATOR - Last Filed: 03/29/24 15:27> Vital Signs Temperature 98.6 F 03/29/24 14:43 Pulse Rate 114 H 03/29/24 14:43 Respiratory Rate 16 03/29/24 14:43 Blood Pressure 124/76 03/29/24 14:43 Pulse Oximetry 99 03/29/24 14:43 Oxygen Delivery Room Air 03/29/24 14:43 Temperature 99.8 F H 03/29/24 17:53 Pulse Rate 105 H 03/29/24 17:53 Respiratory Rate 18 03/29/24 17:53 Blood Pressure 115/75 03/29/24 17:53 Pulse Oximetry 99 03/29/24 17:53 Oxygen Delivery Room Air 03/29/24 16:40 <Hetal Haddad PA-C - Last Filed: 03/29/24 18:26> MDM - Weakness MDM Narrative Medical decision making narrative: Patient presents to the emergency department for cold symptoms ongoing over the last couple of days. Tachycardic upon arrival, this improved without intervention. Patient borderline febrile. Given a dose of Tylenol in the ER. Oxygen saturation is normal on room air. Lungs are clear on exam. Chest x-ray without acute cardiopulmonary abnormality. Strep screen as well as RSV screens are positive. Patient will be started on oral antibiotics and was instructed on the importance of finishing these as prescribed. She was given warnings to return to the ER <Hetal Haddad PA-C - Last Filed: 03/29/24 18:26> Differential Diagnosis Differential diagnosis: Likely other (Pharyngitis, URI, pneumonia) <Hetal Haddad PA-C - Last Filed: 03/29/24 18:26> Lab Data Attestation: I reviewed the patient's lab results. <Hetal Haddad PA-C - Last Filed: 03/29/24 18:26> Result diagrams: 03/29/24 14:53 03/29/24 14:53 <Keyona Chavira APRN - Last Filed: 03/29/24 15:27> Labs: Lab Results 03/29/24 Range/Units 14:53 WBC 7.2 (4.5-10.0) K/mm3 RBC 4.33 (4.2-5.4) M/mm3 Hgb 12.8 (12.0-15.0) g/dL Hct 38.5 (37.0-47.0) % MCV 88.9 (80-100) fl MCH 29.6 (26-34) pg MCHC 33.2 (32-36) g/dl RDW 13.0 (11.5-14.5) % Plt Count 179 D (150-375) k/mm3 MPV 8.9 (7.4-10.4) fl Immature Gran % (Auto) 0.6 H (0-0.5) % Neut % (Auto) 82.8 H (45.5-73.1) % Lymph % (Auto) 9.0 L (18.3-44.2) % [place] % (Auto) 7.2 (2.6-8.5) % Eos % (Auto) 0.1 (0-4.4) % Baso % (Auto) 0.3 (0.2-1.2) % Lymph # (Auto) 0.65 L (0.9-3.2) K/mm3 [place] # (Auto) 0.5 (0.1-0.6) K/mm3 Eos # (Auto) 0.0 (0-0.3) K/mm3 Baso # (Auto) 0.0 (0.0-0.1) K/mm3 Abs Immat Gran (auto) 0.04 H (0.00-0.031) K/mm3 Absolute Neuts (auto) 6.0 (1.3-6.7) K/mm3 Absolute Nucleated RBC 0.000 (0.0-0.012) K/mm3 Nucleated RBC % 0.0 (0.0-0.2) % PT 13.1 (11.1-14.7) Seconds INR 1.0 APTT 26.1 (22.3-36.8) Seconds Sodium 136 L (137-145) mmol/L Potassium 3.8 (3.4-5.0) mmol/L Chloride 104 (98-107) mmol/L Carbon Dioxide 25 (22-30) mmol/L Anion Gap 7 (4-12) mmol/L BUN 6 L (7-17) mg/dL Creatinine 0.70 (0.7-1.0) mg/dL Estim Creat Clear Calc 77 ml/min Estimated GFR > 60 (59 - ) Glucose 165 H (65-110) mg/dL Calcium 9.0 (8.4-10.2) mg/dL Total Bilirubin 0.5 (0.2-1.3) mg/dL AST 90 H (14-36) U/L ALT 67 H (6-35) U/L Alkaline Phosphatase 57 (38-126) U/L Troponin I < 0.012 (0.000-0.034) ng/mL Total Protein 8.0 (6.3-8.2) g/dL Albumin 4.6 (3.5-5.1) g/dL Lipase 64 (23-300) U/L Influenza A (RT-PCR) Negative (Negative) Influenza B (RT-PCR) Negative (Negative) RSV (RT-PCR) Positive A (Negative) SARS-CoV-2 RNA (RT-PCR) Negative (Negative) Group A Strep (PCR) Detected A (Negative) <Keyona Chavira, FINANCE ADMINISTRATOR - Last Filed: 03/29/24 15:27> Lab Results 03/29/24 Range/Units 14:53 WBC 7.2 (4.5-10.0) K/mm3 RBC 4.33 (4.2-5.4) M/mm3 Hgb 12.8 (12.0-15.0) g/dL Hct 38.5 (37.0-47.0) % MCV 88.9 (80-100) fl MCH 29.6 (26-34) pg MCHC 33.2 (32-36) g/dl RDW 13.0 (11.5-14.5) % Plt Count 179 D (150-375) k/mm3 MPV 8.9 (7.4-10.4) fl Immature Gran % (Auto) 0.6 H (0-0.5) % Neut % (Auto) 82.8 H (45.5-73.1) % Lymph % (Auto) 9.0 L (18.3-44.2) % [place] % (Auto) 7.2 (2.6-8.5) % Eos % (Auto) 0.1 (0-4.4) % Baso % (Auto) 0.3 (0.2-1.2) % Lymph # (Auto) 0.65 L (0.9-3.2) K/mm3 [place] # (Auto) 0.5 (0.1-0.6) K/mm3 Eos # (Auto) 0.0 (0-0.3) K/mm3 Baso # (Auto) 0.0 (0.0-0.1) K/mm3 Abs Immat Gran (auto) 0.04 H (0.00-0.031) K/mm3 Absolute Neuts (auto) 6.0 (1.3-6.7) K/mm3 Absolute Nucleated RBC 0.000 (0.0-0.012) K/mm3 Nucleated RBC % 0.0 (0.0-0.2) % PT 13.1 (11.1-14.7) Seconds INR 1.0 APTT 26.1 (22.3-36.8) Seconds Sodium 136 L (137-145) mmol/L Potassium 3.8 (3.4-5.0) mmol/L Chloride 104 (98-107) mmol/L Carbon Dioxide 25 (22-30) mmol/L Anion Gap 7 (4-12) mmol/L BUN 6 L (7-17) mg/dL Creatinine 0.70 (0.7-1.0) mg/dL Estim Creat Clear Calc 77 ml/min Estimated GFR > 60 (59 - ) Glucose 165 H (65-110) mg/dL Calcium 9.0 (8.4-10.2) mg/dL Total Bilirubin 0.5 (0.2-1.3) mg/dL AST 90 H (14-36) U/L ALT 67 H (6-35) U/L Alkaline Phosphatase 57 (38-126) U/L Troponin I < 0.012 (0.000-0.034) ng/mL Total Protein 8.0 (6.3-8.2) g/dL Albumin 4.6 (3.5-5.1) g/dL Lipase 64 (23-300) U/L Influenza A (RT-PCR) Negative (Negative) Influenza B (RT-PCR) Negative (Negative) RSV (RT-PCR) Positive A (Negative) SARS-CoV-2 RNA (RT-PCR) Negative (Negative) Group A Strep (PCR) Detected A (Negative) <Hetal Haddad PA-C - Last Filed: 03/29/24 18:26> Imaging Data Radiologist's impression: ITS Impressions Chest X-Ray 03/29/24 15:58 IMPRESSION: 1. No acute cardiopulmonary disease. <Hetal Haddad PA-C - Last Filed: 03/29/24 18:26> ECG Data EKG #1: ECG completion date: 03/29/24 <Hetal Haddad PA-C - Last Filed: 03/29/24 18:26> EKG Interpretation: tachycardia, sinus rhythm, no ST changes and normal QT <WENDY [place] Last Filed: 03/29/24 18:26> Critical Care Time Critical Care Time Critical Care Time: No <Hetal Haddad PA-C - Last Filed: 03/29/24 18:26> Discharge Plan Discharge Clinical Impression: Acute streptococcal pharyngitis Respiratory syncytial virus (RSV) infection Qualifiers: RSV infection type: unspecified Qualified Code(s): B33.8 - Other specified viral diseases <Keyona Chavira APRN - Last Filed: 03/29/24 15:27> Patient Disposition: Home, Self-Care <Keyona Chavira APRN - Last Filed: 03/29/24 15:27> Condition: Stable <Keyona Chavira APRN - Last Filed: 03/29/24 15:27> Instructions: Antibiotic Form, Strep Throat (ED), RSV (Respiratory Syncytial Virus) Infection (ED) <Keyona Chavira APRN - Last Filed: 03/29/24 15:27> Additional Instructions: Return to the emergency department for worsening symptoms, or any other concerns Remain well-hydrated, get plenty of rest. Take Tylenol or Motrin [id number] for pain as needed. Flonase for nasal congestion. Zyrtec for runny nose. Lozenges or Chloraseptic spray for sore throat. Take oral antibiotic as prescribed until you finish it Follow up with primary care doctor <Keyona Chavira APRN - Last Filed: 03/29/24 15:27> Prescriptions: New penicillin V potassium 500 mg tablet 500 mg PO Q12H 10 Days Qty: 20 0RF No Action sertraline 100 mg tablet 100 mg PO HS PNV cmb#95-ferrous fumarate-FA [] 28 mg iron- 800 mcg Tablet 1 tablet PO DAILY <Keyona Chavira APRN - Last Filed: 03/29/24 15:27> Follow-up/Referrals: Alejandro Gallardo MD [Physician] - PHYSICIAN,ROPING MACHINE TENDER [Primary Care Provider] - <Keyona Chavira APRN - Last Filed: 03/29/24 15:27>
[2024-03-29 15:24] LABS: Partial Thromboplastin Time 26.1 Seconds (22.3-36.8); Troponin I < 0.012 ng/mL (0.000-0.034)
[2024-03-29 15:32] LABS: Strep Group A RT-PCR DETECTED (Negative)
[2024-03-29 15:40] LABS: Influenza A QL RT-PCR Negative (Negative); Influenza B QL RT-PCR Negative (Negative); RSV RNA, RT-PCR Positive (Negative); SARS-CoV-2 RNA PCR Negative (Negative)
[2024-03-29 16:10] VITALS: PULSE 97; RESP 14; O2SAT 100
[2024-03-29 16:40] VITALS: O2SAT 98
[2024-03-29 17:53] VITALS: BP 115/75; PULSE 105; RESP 18; TEMP 37.7; O2SAT 99
[2024-03-29] MEDS: ACETAMINOPHEN 500 MG TABLET 1000 MG PO (18:18)
[2024-03-29 18:47] VITALS: BP 115/88; PULSE 80; RESP 16; TEMP 36.8; O2SAT 99
== END 2024-03-29 18:50 | disposition home or self-care (01) ==
PROVIDERS: Emergency Medicine; Emergency Provider Physician Assistant
DX: J02.0 Streptococcal pharyngitis (principal); B33.8 Other specified viral diseases; R00.0 Tachycardia, unspecified; Z20.822 Contact with and (suspected) exposure to COVID-19
CPT/HCPCS: 36415; 71046; 80053; 83690; 84484; 85025; 85610; 85730; 87637; 87651; 93005; 99284; A9270